=== PATIENT | female | born 1975 | race Caucasian/White ===

== ENCOUNTER 2019-03-24 07:57 | Emergency (ER) | payer MEDICAID, OTHER ==
--- NOTE | 2019-03-24 08:12 | Emergency Department Record ---
History of Present Illness - General Chief Complaint: Ankle/Foot Injury Stated Complaint: FOOT PAIN Time Seen by Provider: 03/24/19 08:04 Source: Patient Mode of Arrival: Ambulatory Limitations: No limitations - History of Present Illness Initial Comments: The patient is here due to R foot pain for a month. She denies any trauma or injury but states she has been having pain to the 2nd - 4th toe area for the month. The pain is worse with walking. The patient would like an xray. Complaint: Foot injury Onset/Timin -: Month(s) Severity: Mild Severity scale (1-10): 3 Improves With: Nothing Worsens With: Nothing - Related Data Previous Rx's Medication Instructions Recorded Naproxen [Naprosyn] 500 mg PO BID #14 tablet. 03/24/19 Allergies Allergy/AdvReac Type Severity Reaction Status Date / Time No Known Drug Allergies Allergy Verified 03/24/19 08:02 Travel Screening - Travel/Exposure Within Last 30 Days Have you traveled within the last 30 days?: No Review of Systems Constitutional: Denies: Chills, Fever Past Medical History - SOCIAL HISTORY Smoking Status: Current some day smoker Alcohol Use: None Drug Use: None - RESPIRATORY Hx Respiratory Disorders: No - CARDIOVASCULAR Hx Cardio Disorders: No - NEURO Hx Neuro Disorders: No - GI Hx GI Disorders: No - Hx Genitourinary Disorders: No - ENDOCRINE Hx Endocrine Disorders: No - MUSCULOSKELETAL Hx Musculoskeletal Disorders: No - PSYCH Hx Psych Problems: No - HEMATOLOGY/ONCOLOGY Hx Hematology/Oncology Disorders: No Family Medical History Any Significant Family History?: No Physical Exam - General General Appearance: Alert, Cooperative, No acute distress - Head Head exam: Atraumatic - Eye Eye exam: Normal appearance - Extremities Extremities exam: Normal inspection (There is no R foot swelling, bruising or signs of trauma or injury.), Full ROM, Normal capillary refill, Tenderness (There is tenderness mainly dorsally to the distal 2nd-4th MT area.). negative: Joint swelling Image of Feet: 1 - Area of pain and tenderness. - Neurological Neurological exam: Alert. negative: Motor sensory deficit Course Vital Signs 03/24/19 08:00 Temperature 97.8 F Pulse Rate 74 Respiratory 20 Rate Blood Pressure 127/85 Pulse Ox 99 - Reevaluation(s) Reevaluation #1: I did discuss the neg xrays with the patient and the need for F/U. 03/24/19 08:50 Medical Decision Making - Data Complexity MDM Data: X-Ray Ordered and/or Reviewed - Radiology Data Radiology results: Report reviewed (R Foot: Neg for fx or dislocation. Foreign bodies medial proximal midfoot. Etiology ?.) Disposition Disposition: Discharge Clinical Impression: Foot pain, right Disposition: Home, Self-Care Condition: (2) Stable Instructions: Foot Sprain (ED) Additional Instructions: Please wear the Post Op shoe for 2 weeks. Take the Naprosyn for pain. Please see your family doctor in 2-3 weeks if not better. Prescriptions: Naproxen [Naprosyn] 500 mg PO BID #14 tablet.dr Forms: Patient Portal Access Time of Disposition: 08:49 Quality - Quality Measures Quality Measures: N/A - Blood Pressure Screening View Details: Yes Does Patient Have Any of the Following: No Blood Pressure Classification: Pre-Hypertensive BP Reading Systolic Measurement: 127 Diastolic Measurement: 85 Screening for High Blood Pressure: < Pre-Hypertensive BP, F/U Documented > [[id number]] Pre-Hypertensive Follow-up Interventions: Referral to alternative/primary care provider.
--- NOTE | 2019-03-24 08:42 | RADIOLOGY REPORT ---
EXAMINATION: Right Foot, Minimum Three Views EXAM DATE: 03/24/2019 8:28 AM TECHNIQUE: AP, lateral, and oblique INDICATION: R foot pain COMPARISON: Right foot: 10/25/2008 ENCOUNTER: Initial FINDINGS: Alignment is anatomic. There is no fracture or dislocation. There is no focal bony lesion. There are a few radiopaque foreign densities in the soft tissues along the medial aspect of the hindfoot measur ing up to 5 mm which are stable. There is an accessory ossicle along the dorsal margin of the navicul ar measuring 5 mm. IMPRESSION: 1. Negative right foot for fracture or focal lesion. 2. Chronic soft tissue foreign bodies in the lateral aspect of the hindfoot. Dictated by: Cristian Espinal MD on 03/24/2019 8:38 AM. .
== END 2019-03-24 08:58 | disposition home or self-care (01) ==
LOC: ER 07:57
DX: M79.671 Pain in right foot (principal); F17.210 Nicotine dependence, cigarettes, uncomplicated
CPT/HCPCS: 99283